=== PATIENT | female | born 1980 | race Two or more races ===

== ENCOUNTER 2019-02-13 15:31 | Inpatient (IN) | payer BC, MEDICAID ==
[~2019-02-13] VITALS: Ht 154.9 cm; Wt 81.0 kg
[2019-02-13] MEDS ORDERED: IOHEXOL 300 MG/ML 100ML BOTTLE IJ ONE (16:06)
[2019-02-13 16:08] LABS: Urine WBC None Seen /hpf (0 - 5)
[2019-02-13 16:18] LABS: Basophils # (auto) 0 uL; Basophils % (auto) 0.4 % (0.0-2.0); Eosinophils # (auto) 0.1 uL; Eosinophils % (auto) 1.5 % (0.0-7.0); Hematocrit 41.4 % (36.0-46.0); Hemoglobin 14.1 g/dL (12.2-16.2); Lymphocytes # (auto) 1.5 uL; Lymphocytes % (auto) 20.4 % (10.0-50.0); Mean Corpuscular Hemoglobin 29.8 pg (28.0-32.0); Mean Corpuscular Hgb Conc. 34.1 g/dL (32.0-36.0); Mean Corpuscular Volume 87.3 fL (80.0-100.0); Monocytes # (auto) 0.4 uL; Monocytes % (auto) 5.1 % (0.0-12.0); Neutrophils # (auto) 5.5 uL; Neutrophils % (auto) 72.6 % (37.0-80.0); Platelet Count (auto) 176 10^3/uL (140-450); Red Blood Cells 4.74 10^6/uL (4.0-5.20); Red Cell Distribution Width 12.8 % (11.8-14.3); White Blood Cell 7.5 10^3/uL (4.4-10.8)
[2019-02-13 16:28] LABS: Urine Bacteria NONE SEEN /hpf (None Seen); Urine Blood 2+ /uL (Negative); Urine Specific Gravity 1.011 (1.001-1.035)
[2019-02-13 16:32] LABS: Albumin 3.9 g/dL (3.4-5.0); BUN/Creatinine Ratio 15.9; Calcium 8.8 mg/dL (8.5-10.1); Potassium 3.3 mmol/L (3.5-5.1)
[2019-02-13 16:35] LABS: Bilirubin, Total 0.9 mg/dL (0.2-1.0); Total Protein 7.6 g/dL (6.4-8.2)
[2019-02-13] MEDS ORDERED: CLINDAMYCIN 600MG IV 50 ML IV ONE (20:15)
[2019-02-13] MEDS ORDERED: KETOROLAC TROMETH 15 mg/ml 1ML VL IV ONE (20:15)
[2019-02-13] MEDS ORDERED: cefTRIAXone 1GM/50ML D5W 50 ML IV ONE (21:30)
[2019-02-13] MEDS ORDERED: SODIUM CHLORIDE 0.9% 1,000 ML IV ONE (21:30)
[2019-02-13] MEDS ORDERED: MORPHINE SULF INJ 2 MG/ML SYRINGE 1ML IV PRN (22:00)
[2019-02-13] MEDS ORDERED: ONDANSETRON HCL 4 MG/2 ML VIAL IV PRN (22:00)
[2019-02-13] MEDS ORDERED: ACETAMINOPHEN 325 MG TAB PO PRN (22:00)
[2019-02-13] MEDS ORDERED: HYDROcodone-ACET 5/325MG TAB PO PRN (22:00)
[2019-02-14] MEDS: SODIUM CHLORIDE 0.9% 1,000 ML IV SCH ×2 (01:38→11:25)
[2019-02-14] MEDS: CLINDAMYCIN 600MG IV 50 ML IV SCH ×3 (06:25→21:40)
[2019-02-14 07:01] LABS: Basophils # (auto) 0 uL; Basophils % (auto) 0.9 % (0.0-2.0); Eosinophils # (auto) 0.1 uL; Eosinophils % (auto) 2.1 % (0.0-7.0); Lymphocytes # (auto) 1.2 uL; Lymphocytes % (auto) 22.6 % (10.0-50.0); Mean Corpuscular Hemoglobin 29.8 pg (28.0-32.0); Mean Corpuscular Hgb Conc. 34.1 g/dL (32.0-36.0); Mean Corpuscular Volume 87.3 fL (80.0-100.0); Monocytes # (auto) 0.3 uL; Monocytes % (auto) 6.5 % (0.0-12.0); Neutrophils # (auto) 3.5 uL; Neutrophils % (auto) 67.9 % (37.0-80.0); Nucleated Red Blood Cells % 0.1 %; Platelet Count (auto) 125 10^3/uL (140-450); Red Blood Cells 4.36 10^6/uL (4.0-5.20); White Blood Cell 5.2 10^3/uL (4.4-10.8)
[2019-02-14 07:35] LABS: BUN/Creatinine Ratio 15.7; Calcium 7.9 mg/dL (8.5-10.1); Potassium 3.4 mmol/L (3.5-5.1)
[2019-02-14] MEDS: LEVOFLOXACIN 500MG 100 ML IV SCH (10:11)
[2019-02-14] MEDS: FAMOTIDINE 20 MG TAB PO SCH ×2 (10:11→21:39)
[2019-02-14 14:04] VITALS: BP 118/58
[2019-02-14 17:12] VITALS: BP 97/65
--- NOTE | 2019-02-14 19:15 | NUR ---
Opening Shift Note Received report from Kashif SCHMIDT. Assumed care of patient, awake and alert. No S/S of distress/SOB or pain. Instructed on POC and to call for assist PRN, will continue to monitor for changes Q1hr and PRN.
[2019-02-14 22:00] VITALS: BP_SYST 105; BP_SYST 94; BP_DIAS 60; BP_DIAS 71
[2019-02-15 05:00] VITALS: BP 89/48
[2019-02-15] MEDS: CLINDAMYCIN 600MG IV 50 ML IV SCH ×2 (05:30→14:06)
[2019-02-15 07:23] LABS: INR 0.93 (0.9-1.15)
[2019-02-15 08:00] VITALS: BP 103/52
[2019-02-15 08:50] VITALS: BP 103/52
[2019-02-15] MEDS: FAMOTIDINE 20 MG TAB PO SCH (09:30)
[2019-02-15] MEDS: LEVOFLOXACIN 500MG 100 ML IV SCH (09:31)
[2019-02-15 12:30] VITALS: BP 112/71
[2019-02-15] MEDS ORDERED: CLIN300C8 PO (13:45)
[2019-02-15 14:57] VITALS: BP 112/71
--- NOTE | 2019-02-15 16:01 | NUR ---
PATIENT DISCHARGED HOME. ALL IV ACCESS DISCONTINUED. ALL DISCHARGE INSTRUCTIONS GIVEN. ALL DISCHARGE PAPERWORK SIGNED
== END 2019-02-15 15:45 | disposition home or self-care (01) | DRG 603 ==
LOC: ER 15:31 → OVERFLOW 15:32 → EAST 02-14 13:13
PROVIDERS: ADMIT Nurse Practitioner Family; ATTEND Internal Medicine
DX: L03.316 Cellulitis of umbilicus (principal); E66.01 Morbid (severe) obesity due to excess calories; K66.8 Other specified disorders of peritoneum; E87.6 Hypokalemia; L02.216 Cutaneous abscess of umbilicus; Z88.2 Allergy status to sulfonamides; Z98.51 Tubal ligation status; Z72.89 Other problems related to lifestyle; Z68.33 Body mass index [BMI] 33.0-33.9, adult; Z83.3 Family history of diabetes mellitus; Z79.899 Other long term (current) drug therapy
CPT/HCPCS: 36415; 74177; 80048; 80053; 81001; 81025; 85025; 85610; 85730; 87040; 87205; 96365; 96367; 96375; G0378; J0696; J1956; J3490

== ENCOUNTER 2019-02-25 04:50 | Emergency (ER) | payer BC, MEDICAID ==
[~2019-02-25] VITALS: Ht 154.9 cm; Wt 79.4 kg
[~2019-02-25 04:50] MED LIST: CLIN300C8 PO
[2019-02-25] MEDS ORDERED: diphenhdrAMINE HCL 50 MG/1 ML VL IV ONE (05:15)
[2019-02-25] MEDS ORDERED: methylPREDNISolone SOD SUCC 125 MG/2 ML VL IV ONE (05:15)
[2019-02-25] MEDS ORDERED: EPINEPHrine HCL 1 MG/1 ML AMP SC ONE (05:45)
[2019-02-25 07:50] VITALS: BP 125/86
== END 2019-02-25 08:03 | disposition home or self-care (01) ==
LOC: ER 04:50
DX: L50.9 Urticaria, unspecified (principal); A49.9 Bacterial infection, unspecified; Z98.51 Tubal ligation status; Z88.2 Allergy status to sulfonamides
CPT/HCPCS: 94761; 96372; 96374; 96375; 99283; J0171; J1200; J2930